=== PATIENT | male | born 1975 | race African-American/Black ===

== ENCOUNTER 2020-04-20 16:05 | Emergency (ER) | payer OTHER ==
[~2020-04-20] VITALS: Ht 172.7 cm; Wt 82.0 kg
[2020-04-20 16:16] VITALS: BP 133/87
== END 2020-04-20 19:15 | disposition home or self-care (01) ==
LOC: ER 16:21
DX: S60.561A Insect bite (nonvenomous) of right hand, initial encounter (principal); W57.XXXA Bitten or stung by nonvenomous insect and other nonvenomous arthropods, initial encounter; Y93.9 Activity, unspecified; Y92.9 Unspecified place or not applicable; Z88.2 Allergy status to sulfonamides
CPT/HCPCS: 99283